=== PATIENT | female | born 1990 | race Two or more races ===

== ENCOUNTER 2017-04-28 17:30 | Emergency (ER) | payer SELFPAY ==
[~2017-04-28] VITALS: Ht 165.1 cm; Wt 88.0 kg
[2017-04-28] MEDS ORDERED: Acetaminophen 500mg (ES) tab ORAL ONE (18:15)
[2017-04-28] MEDS ORDERED: NORCO 5-325 TA1 EACH ORAL (18:21)
[2017-04-28] MEDS ORDERED: IBUPROFEN600 MG ORAL (18:21)
[2017-04-28 19:01] VITALS: BP 112/66
--- NOTE | 2017-04-29 08:43 | Diagnostic Imaging Report ---
Indication: ] Ankle/leg injury Technique: 3 views of the right ankle Comparison: none Findings: There is a nondisplaced oblique fracture of the distal fibula. Overlying soft tissue swelling is noted. No associated tibial fracture demonstrated. No dislocations. The joint spaces are preserved Impression: Positive for distal fibular fracture Review of the electronic medical record indicates this was recognized by the emergency Department physician
--- NOTE | 2017-04-29 08:47 | Diagnostic Imaging Report ---
Indication: Right ankle and leg injury Technique: 2 views of the right tibia and fibula Comparison: none Findings: Lateral view demonstrates a nondisplaced oblique distal fibular fracture. This is better visualized on ankle radiograph performed the same time. No proximal rib fracture demonstrated. Impression: Positive for distal fibular fracture Reviewed the electronic medical record indicates that this was recognized by the emergency Department physician
--- NOTE | 2017-04-29 15:50 | Emergency Room Report ---
History of Present Illness General Chief Complaint: Lower Extremity Injury Source: Patient Present Illness HPI Patient is a 26-year-old female who presented after right lower extremity injury and pain. The patient was reportedly hiking and inverted her ankle. As she reports having increased pain to the right side of her leg as well as the ankle area. She denies any fever. She reported having difficulty with ambulation. The patient presented with crutches. She denies any numbness or weakness distally. Allergies: Coded Allergies: No Known Allergies (Unverified , 04/28/17) Patient History Reviewed Nursing Documentation: PMH: Agreed, PSxH: Agreed Nursing Documentation-[facility] Past Medical History: No Stated History Review of Systems All Other Systems: negative except mentioned in HPI Physical Exam Vital Signs Date Time Temp Pulse Resp B/P (MAP) Pulse Ox O2 Delivery O2 Flow Rate FiO2 04/28/17 17:42 98.6 87 20 112/66 99 Room Air General Appearance: well appearing, no apparent distress, alert, GCS 15 Head: normocephalic, atraumatic ENT: hearing grossly normal, normal voice Neck: full range of motion, supple Respiratory: no respiratory distress, speaking full sentences Musculoskeletal: no calf tenderness Neurologic: alert, oriented x3, responsive, aircraft body repairer III-XII nml as tested, motor strength/tone normal, normal gait Psychiatric: mood/affect normal Skin: other - bruising and swelling to right lower ext, latera Medical Decision Making Diagnostic Impression: Primary Impression: Fibula fracture ER Course Patient presented for leg and ankle pain. Differential diagnosis included was not limited to vascular insufficiency, fracture, osteomyelitis, sprain, deep venous thrombosis. X-ray imaging of the ankle was obtained. X-ray of the right ankle 3 views interpreted by me showed nondisplaced fibular fracture. The patient was placed in a stirrup splint. Patient was advised followup for orthopedic referral.The patient is advised to follow up with primary care doctor in 1-2 days. Patient is advised to return if any worsening condition or if any changes in status that are concerning. This report is dictated with [employer] blasting helper software which may occasionally lead to discrepancies related to use of this software. Last Vital Signs Date Time Temp Pulse Resp B/P (MAP) Pulse Ox O2 Delivery O2 Flow Rate FiO2 04/28/17 19:01 98.6 78 20 112/66 99 Room Air Status: improved Disposition: HOME, SELF-CARE Condition: Stable Scripts Ibuprofen* (MOTRIN*) 600 Mg Tablet 600 MG ORAL Q8H Y for For Pain, #30 TAB 0 Refills Prov: Ermias Anderson 04/28/17 Hydrocodone Bit/Acetaminophen 5-325* (NORCO 5-325*) 1 Each Tablet 1 TAB ORAL Q6H Y for For Pain, #20 TAB 0 Refills Prov: Ermias Anderson 04/28/17 Referrals: NOT CHOSEN IPA/MD,REFERRING (PCP) Patient Instructions: Undisplaced Fibular Ankle Fracture Treated With Immobilization, Adult Ermias Anderson Apr 29, 2017 15:50
== END 2017-04-28 19:22 | disposition home or self-care (01) ==
LOC: EMR 19:00
DX: S82.434A Nondisplaced oblique fracture of shaft of right fibula, initial encounter for closed fracture (principal); X50.1XXA Overexertion from prolonged static or awkward postures, initial encounter; Y93.01 Activity, walking, marching and hiking; Y92.89 Other specified places as the place of occurrence of the external cause
CPT/HCPCS: 99284